=== PATIENT | male | born 1975 | race Caucasian/White ===

== ENCOUNTER 2018-11-06 16:20 | Emergency (ER) | payer OTHER ==
--- OUTSIDE RECORDS SUMMARY | 2018-11-06 16:32 | XMS REPORT | Continuity of Care Document ---
:1975 External Reference #:[id number] Author Name Kendall Mathur DO Address [address] [place] [address] Care Team Providers Name Role Phone Kendall Mathur DO Care Team Information Administration Clerk Unavailable Payers Type Date Identification Numbers Payment Provider Subscriber Effective: Policy Number: Lifetime Benefit Yordan Gonzalez 2014 [id number] Formerly [facility] Group Number: [id number] [id number] PayID: [facility] [place] [address] Advance Directives Description No Information Available Problems Date Description Provider Status Onset: 09/08/2014 Benign essential hypertension Kendall Mathur DO Active Onset: 03/17/2012 Gastroesophageal reflux disease Kendall Mathur DO Active Onset: 11/07/2014 Peptic reflux disease Kendall Mathur DO Active Onset: 04/19/2015 Laceration - injury Active Onset: 04/19/2015 Vasovagal syncope Active Family History Date Family Member(s) Problem(s) Comments Father Hypertension Father Hypercholesterolemia Father Depression Father Liver Disease Mother Neurofibromatosis Mother Pheochromocytoma Paternal Grandfather Diabetes, Adult Paternal Grandfather Hypertension Social History Type Date Description Comments Sex Unknown Education Some grad school 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 Hobbies Biking Hobbies [employer] Smokeless Tobacco Former Smokeless Tobacco User, Used Occasionally ETOH Use consumes 4-5 beers per week Recreational Drug Use Denies Drug Use Allergies, Adverse Reactions, Alerts Description No Known Drug Allergies Medications Medication Date Status Form Strength Qnty SIG Indications Ordering Provider Esomeprazole 09/20/ Active Capsules 40mg 90caps [address], every day DO Lisinopril 01/31/ Active Tablets 10mg 90tabs 1 by [email or web address] Dale Mathur, every day DO Augmentin 02/07/ Hx Tablets 875-125mg 14tabs 1 by [email or web address] Kevan, 2018 - mouth Kendall, 11/20/ twice a DO 2018 day x 7 days Lisinopril-Hydr 11/08/ Hx Tablets 20-25mg 90tabs 1 by I10 qian Mathurlorothiazide 2014 - mouth Kendall, 01/31/ every day DO 2016 Lisinopril 09/08/ Hx Tablets 10mg 90tabs 1 by Kevan, 2013 - mouth Kendall, 11/08/ every day DO 2014 Nexium 03/17/ Hx Capsules 40mg 90caps 1 by Kevan 2011 - DR gian Argueta, 09/20/ every day DO 2016 Esomeprazole / Hx Capsules 20mg Daily For Unknown Magnesium 0000 - DR Gastric 2014 Lisinopril/Hydr / Hx Tablets 20-12.5 Daily For Unknown ochlorothiazide 0000 - B/P 2014 Iron Supplement / Hx Tablets 1 by Unknown 0000 - mouth 10/22/ every day 2019 Immunizations CPT Code Status Date Vaccine Reaction Lot # [id number] Given 07/23/2018 Influenza Vac, Quadrivalent, Split, 0.5mL Dosage, Im Use [id number] Given 08/08/2017 Flu Vaccine NOS NYSIIS [id number] Given 04/22/2015 Tdap (Adacel) Ages 7 And Above Only [id number] Given 03/17/2012 Tdap (Adacel) Ages 7 And Above Only Vital Signs Date Vital Result Comment 10/23/2018 9:02am Weight 186.00 lb Heart Rate 66 /min BP Systolic 120 mmHg BP Diastolic 78 mmHg Respiratory Rate 18 /min Height 64.75 inches 5'4.75" (09/2016) BMI (Body Mass Index) 31.2 kg/m2 04/04/2018 8:03am Weight 179.00 lb Heart Rate 68 /min BP Systolic 132 mmHg BP Diastolic 78 mmHg Respiratory Rate 18 /min Height 64.75 inches 5'4.75" (09/2016) BMI (Body Mass Index) 30.0 kg/m2 11/13/2017 2:39pm Body Temperature 98.4 F Weight 178.00 lb Heart Rate 70 /min BP Systolic 138 mmHg BP Diastolic 82 mmHg Respiratory Rate 17 /min Height 64.75 inches 5'4.75" (09/2016) O2 % BldC Oximetry 98 % BMI (Body Mass Index) 29.8 kg/m2 09/27/2017 8:08am Weight 178.00 lb Heart Rate 78 /min BP Systolic 126 mmHg BP Diastolic 70 mmHg Respiratory Rate 17 /min Height 64.75 inches 5'4.75" (09/2016) BMI (Body Mass Index) 29.8 kg/m2 03/21/2017 8:02am Weight 174.00 lb Heart Rate 68 /min BP Systolic 126 mmHg BP Diastolic 80 mmHg Respiratory Rate 17 /min Height 64.75 inches 5'4.75" (09/2016) BMI (Body Mass Index) 29.2 kg/m2 09/20/2016 8:05am Weight 191.00 lb Heart Rate 88 /min BP Systolic 134 mmHg BP Diastolic 88 mmHg Respiratory Rate 18 /min Height 64.75 inches 5'4.75" (09/2016) BMI (Body Mass Index) 32.0 kg/m2 03/14/2016 8:05am Weight 196.00 lb Heart Rate 84 /min BP Systolic 136 mmHg BP Diastolic 90 mmHg BP Systolic Recheck 124 mmHg BP Diastolic Recheck 86 mmHg Respiratory Rate 18 /min Height 64.75 inches 5'4.75" BMI (Body Mass Index) 32.9 kg/m2 09/07/2015 8:02am Weight 196.00 lb Heart Rate 72 /min BP Systolic 134 mmHg BP Diastolic 92 mmHg Respiratory Rate 18 /min Height 64.75 inches 5'4.75" BMI (Body Mass Index) 32.9 kg/m2 03/02/2015 8:06am Weight 190.00 lb Heart Rate 72 /min BP Systolic 134 mmHg BP Diastolic 90 mmHg Respiratory Rate 18 /min Height 64.75 inches 5'4.75" BMI (Body Mass Index) 31.9 kg/m2 11/15/2014 2:51pm Body Temperature 97.5 F Weight 194.00 lb Heart Rate 88 /min BP Systolic 148 mmHg BP Diastolic 98 mmHg Respiratory Rate 18 /min Height 64.75 inches 5'4.75" BMI (Body Mass Index) 32.5 kg/m2 11/08/2014 8:05am Weight 197.00 lb Heart Rate 74 /min BP Systolic 150 mmHg BP Diastolic 98 mmHg BP Systolic Recheck 146 mmHg BP Diastolic Recheck 98 mmHg Respiratory Rate 18 /min 09/08/2014 2:51pm BP Systolic 134 mmHg BP Diastolic 92 mmHg 09/08/2014 2:51pm Weight 195.00 lb Heart Rate 84 /min BP Systolic 136 mmHg BP Diastolic 82 mmHg Respiratory Rate 18 /min Height 64.75 inches 5'4.75" 05/07/2014 8:32am Weight 192.00 lb Heart Rate 72 /min BP Systolic 130 mmHg BP Diastolic 90 mmHg Respiratory Rate 18 /min Height 64.75 inches 5'4.75" 03/24/2014 8:59am BP Systolic 138 mmHg BP Diastolic 106 mmHg 03/24/2014 8:59am Weight 192.00 lb Heart Rate 78 /min BP Systolic 148 mmHg BP Diastolic 102 mmHg Respiratory Rate 20 /min Results Test Date Facility Test Result H/L Range Note Laboratory test finding 10/02/2018 [facility] Magnesium 2.0 mg/dL 1.5-2.7 Iron, Total 95 g/dL 65-175 CBC with Auto Diff-fcmg 10/02/2018 [facility] WBC 6.2 K/uL 4.1-11.0 RBC 5.41 M/uL 4.60-6.10 Hemoglobin 16.4 gm/dL 13.5-18.0 Hematocrit 47.1 % 41.0-53.0 MCV 87.0 fL 80.0-97.0 MCH 30.2 pg 27.0-32.0 MCHC 34.8 g/dL 32.0-36.0 RDW 12.8 % 11.5-14.5 PLT Count 170 K/ul 140-400 MPV 9.1 FL 7.1-10.7 Neutrophil 62.3 % 35.0-75.0 Lymphocyte 25.9 % 16.0-52.0 Monocyte 9.0 % 2.0-10.0 Eosinophil 2.0 % 0.0-5.0 Basophil 0.8 % 0.0-4.0 Abs Neutrophils 3.9 K/uL 2.1-8.0 Abs Lymphocytes 1.6 K/uL 0.8-5.5 Abs Monocytes 0.6 K/uL 0.1-1.0 Abs Eosinophils 0.1 K/uL 0.0-0.5 Abs Basophils 0.1 K/uL 0.0-0.3 Basic (BMP) 10/02/2018 [facility] Sodium 143 mmol/L 135-146 1 Potassium 3.8 mmol/L 3.5-5.2 Chloride# 102 mmol/L 97-110 2 Carbon Dioxide 28 mmol/L 24-34 Glucose 94 mg/dL 70-105 BUN 16 mg/dL 6-26 Creatinine 1.0 mg/dL 0.5-1.4 Calcium 9.4 mg/dL 8.5-10.2 Non Joleen Egfr >60 >60 3 Joleen Egfr >60 >60 4 Anion Gap 13 mmol/L 5-15 5 Laboratory test finding 10/02/2018 [facility] TSH 2.77 uIU/mL 0.35-4.94 Lipid Treatment 10/02/2018 [facility] Cholesterol 187 mg/dL 50-199 Triglycerides 117 mg/dL 30-200 HDL 45 mg/dL 29-71 6 Chol/ HDL Ratio 4.2 ratio 4.0-6.7 VLDL 23 mg/dL 2-29 LDL (Calc) 119 mg/dL High 20-99 7 Alt 24 U/L 3-42 Ast 22 U/L 8-42 CBC With Auto Diff 03/28/2018 [facility] WBC 5.7 K/uL 4.1-11.0 RBC 5.15 M/uL 4.60-6.10 Hemoglobin 15.7 gm/dL 13.5-18.0 Hematocrit 44.9 % 41.0-53.0 MCV 87.3 fL 80.0-97.0 MCH 30.5 pg 27.0-32.0 MCHC 34.9 g/dL 32.0-36.0 RDW 13.1 % 11.5-14.5 PLT Count 182 K/ul 140-400 MPV 9.8 FL 7.1-10.7 Neutrophil 61.1 % 35.0-75.0 Lymphocyte 26.9 % 16.0-52.0 Monocyte 9.0 % 2.0-10.0 Eosinophil 2.0 % 0.0-5.0 Basophil 1.0 % 0.0-4.0 Abs Neutrophils 3.5 K/uL 2.1-8.0 Abs Lymphocytes 1.5 K/uL 0.8-5.5 Abs Monocytes 0.5 K/uL 0.1-1.0 Abs Eosinophils 0.1 K/uL 0.0-0.5 Abs Basophils 0.1 K/uL 0.0-0.3 Basic (BMP) 03/28/2018 [facility] Sodium 143 mmol/L 135-146 8 Potassium 4.0 mmol/L 3.5-5.2 Chloride# 109 mmol/L 97-110 9 Carbon Dioxide 26 mmol/L 24-34 Glucose 101 mg/dL 70-105 BUN 14 mg/dL 6-26 Creatinine 1.1 mg/dL 0.5-1.4 Calcium 9.1 mg/dL 8.5-10.2 Non Joleen Egfr >60 >60 10 Joleen Egfr >60 >60 11 Anion Gap 8 mmol/L 5-15 12 Laboratory test finding 03/28/2018 [facility] Iron, Total 103 g/dL 65- 175 CBC With Auto Diff 09/20/2017 [facility] WBC 6.9 K/uL 4.1-11.0 RBC 5.42 M/uL 4.60-6.10 Hemoglobin 16.2 gm/dL 13.5-18.0 Hematocrit 47.3 % 41.0-53.0 MCV 87.3 fL 80.0-97.0 MCH 29.9 pg 27.0-32.0 MCHC 34.2 g/dL 32.0-36.0 RDW 13.2 % 11.5-14.5 PLT Count 186 K/ul 140-400 MPV 9.1 FL 7.1-10.7 Neutrophil 69.0 % 35.0-75.0 Lymphocyte 20.8 % 16.0-52.0 Monocyte 8.0 % 2.0-10.0 Eosinophil 1.4 % 0.0-5.0 Basophil 0.8 % 0.0-4.0 Abs Neutrophils 4.7 K/uL 2.1-8.0 Abs Lymphocytes 1.4 K/uL 0.8-5.5 Abs Monocytes 0.6 K/uL 0.1-1.0 Abs Eosinophils 0.1 K/uL 0.0-0.5 Abs Basophils 0.1 K/uL 0.0-0.3 Basic (BMP) 09/20/2017 [facility] Sodium 140 mmol/L 135-146 13 Potassium 3.9 mmol/L 3.5-5.2 Chloride# 104 mmol/L 97-110 14 Carbon Dioxide 28 mmol/L 24-34 Glucose 92 mg/dL 70-105 Creatinine 1.1 mg/dL 0.5-1.4 Calcium 9.2 mg/dL 8.5-10.2 Non Joleen Egfr >60 >60 15 Joleen Egfr >60 >60 16 Anion Gap 8 mmol/L 7-16 17 BUN 14 mg/dL 6-26 Laboratory test finding 09/20/2017 [facility] TSH 2.91 uIU/mL 0.35-4.94 Lipid Treatment 09/20/2017 [facility] Cholesterol 158 mg/dL 50-199 Triglycerides 94 mg/dL 30-200 HDL 40 mg/dL 29-71 18 Chol/ HDL Ratio 4.0 ratio 4.0-6.7 VLDL 19 mg/dL 2-29 LDL (Calc) 100 mg/dL High 20-99 19 Alt 21 U/L 3-42 Ast 14 U/L 8-42 Laboratory test finding 09/20/2017 [facility] Magnesium 2.1 mg/dL 1.5-2.7 Iron, Total 54 g/dL Low 65-175 Ferritin 67.6 ng/ml 24.0-336.0 Vitamin B12 269 pg/mL 180-914 Laboratory test finding 12/26/2016 [facility] Ferritin 6.2 ng/ml Low 24.0- 336.0 Iron Panel 12/26/2016 [facility] Iron, Total 25 g/dL Low 65-175 Transferrin 290.0 mg/dL 203.0-362.0 Tibc (calc) 406 g/dL 261-478 % Iron Saturation 6.2 % Low 13.0-45.0 Laboratory test finding 12/26/2016 [facility] Vitamin B12 214 pg/mL 180- 914 CBC With Auto Diff 12/26/2016 [facility] WBC 6.1 K/uL 4.1-11.0 RBC 5.47 M/uL 4.60-6.10 Hemoglobin 12.1 gm/dL Low 13.5-18.0 Hematocrit 38.5 % Low 41.0-53.0 MCV 70.3 fL Low 80.0-97.0 MCH 22.2 pg Low 27.0-32.0 MCHC 31.6 g/dL Low 32.0-36.0 RDW 18.3 % High 11.5-14.5 PLT Count 224 K/ul 140-400 Neutrophil 71.1 % 35.0-75.0 Lymphocyte 18.2 % 16.0-52.0 Monocyte 8.9 % 2.0-10.0 Eosinophil 1.0 % 0.0-5.0 Basophil 0.8 % 0.0-4.0 Abs Neutrophils 4.4 K/uL 2.1-8.0 Abs Lymphocytes 1.1 K/uL 0.8-5.5 Abs Monocytes 0.5 K/uL 0.1-1.0 Abs Eosinophils 0.1 K/uL 0.0-0.5 Abs Basophils 0.0 K/uL 0.0-0.3 Basic (BMP) 12/26/2016 [facility] Sodium 138 mmol/L 135-146 20 Potassium 4.7 mmol/L 3.5-5.2 Chloride# 103 mmol/L 97-110 21 Carbon Dioxide 27 mmol/L 24-34 Glucose 85 mg/dL 70-105 BUN 17 mg/dL 6-26 Creatinine 1.1 mg/dL 0.5-1.4 Calcium 9.3 mg/dL 8.5-10.2 Non Joleen Egfr >60 >60 22 Joleen Egfr >60 >60 23 Anion Gap 13 mmol/L 7-16 24 CBC With Auto Diff 09/13/2016 [facility] WBC 6.4 K/uL 4.1-11.0 RBC 5.57 M/uL 4.60-6.10 Hemoglobin 11.5 gm/dL Low 13.5-18.0 Hematocrit 37.0 % Low 41.0-53.0 MCV 66.3 fL Low 80.0-97.0 MCH 20.7 pg Low 27.0-32.0 MCHC 31.2 g/dL Low 32.0-36.0 RDW 18.3 % High 11.5-14.5 PLT Count 274 K/ul 140-400 Neutrophil 63.3 % 35.0-75.0 Lymphocyte 23.5 % 16.0-52.0 Monocyte 9.7 % 2.0-10.0 Eosinophil 2.3 % 0.0-5.0 Basophil 1.2 % 0.0-4.0 Abs Neutrophils 4.0 K/uL 2.1-8.0 Abs Lymphocytes 1.5 K/uL 0.8-5.5 Abs Monocytes 0.6 K/uL 0.1-1.0 Abs Eosinophils 0.1 K/uL 0.0-0.5 Abs Basophils 0.1 K/uL 0.0-0.3 Basic (BMP) 09/13/2016 [facility] Sodium 139 mmol/L 134-142 Potassium 3.9 mmol/L 3.5-5.2 Chloride 106 mmol/L 97-109 Carbon Dioxide 28 mmol/L 24-34 Glucose 99 mg/dL 70-105 BUN 17 mg/dL 6-26 Creatinine 1.1 mg/dL 0.5-1.4 Calcium 8.7 mg/dL 8.5-10.2 Anion Gap 9 mmol/L 6-14 Non Joleen Egfr >60 >60 25 Joleen Egfr >60 >60 26 Laboratory test finding 09/13/2016 [facility] TSH 2.33 uIU/mL 0.35-4.94 Lipid Treatment 09/13/2016 [facility] Cholesterol 154 mg/dL 50-199 Triglycerides 103 mg/dL 30-200 HDL 29 mg/dL 29-71 27 Chol/ HDL Ratio 5.3 ratio 4.0-6.7 VLDL 21 mg/dL 2-29 LDL (Calc) 104 mg/dL High 20-99 28 Alt 21 U/L 3-42 Ast 16 U/L 8-42 CBC With Auto Diff 08/31/2015 [facility] WBC 6.5 K/uL 4.1-11.0 29 RBC 5.49 M/uL 4.60-6.10 Hemoglobin 13.5 gm/dL 13.5-18.0 Hematocrit 41.8 % 41.0-53.0 MCV 76.2 fL Low 80.0-97.0 MCH 24.5 pg Low 27.0-32.0 MCHC 32.2 g/dL 32.0-36.0 RDW 16.3 % High 11.5-14.5 PLT Count 200 K/ul 140-400 Neutrophil 67.5 % 35.0-75.0 Lymphocyte 17.2 % 16.0-52.0 Monocyte 12.6 % High 2.0-10.0 Eosinophil 1.5 % 0.0-5.0 Basophil 1.2 % 0.0-4.0 Abs Neutrophils 4.4 K/uL 2.1-8.0 Abs Lymphocytes 1.1 K/uL 0.8-5.5 Abmon 0.8 K/uL 0.1-1.0 Abs Eosinophils 0.1 K/uL 0.0-0.5 Abs Basophils 0.1 K/uL 0.0-0.3 Basic (BMP) 08/31/2015 [facility] Sodium 138 mmol/L 134-142 Potassium 4.2 mmol/L 3.5-5.2 Chloride 104 mmol/L 97-109 Carbon Dioxide 26 mmol/L 24-34 Glucose 103 mg/dL 70-105 BUN 14 mg/dL 6-26 Creatinine 1.1 mg/dL 0.5-1.4 Calcium 8.6 mg/dL 8.5-10.2 Anion Gap 12 mmol/L 6-14 Non Joleen Egfr >60 >60 30 Joleen Egfr >60 >60 31 Lipid Treatment 08/31/2015 [facility] Cholesterol 156 mg/dL 50-199 Triglycerides 79 mg/dL 30-200 HDL 36 mg/dL 29-71 32 Chol/ HDL Ratio 4.3 ratio 4.0-6.7 VLDL 16 mg/dL 2-29 LDL (Calc) 104 mg/dL High 20-99 33 Alt 27 U/L 3-42 Ast 19 U/L 8-42 Laboratory test 08/31/2015 [facility] TSH 2.56 uIU/mL 0.35-4.94 finding Laboratory test 04/19/2015 N2N/CCD Import Bedside 93 70-110 finding Glucose Basic Metabolic 11/01/2014 [facility] Glucose 95 mg/dL 74-106 Panel (315)- - BUN 13 mg/dL 7-18 Creatinine 1.2 mg/dL 0.6-1.3 Glom Filtration Rate, Estimate >60 mL/min >60 If >60 mL/min >60 34 BUN/Creat 10.8 ratio Sodium 140 mmol/L 136-145 Potassium 3.8 mmol/L 3.5-5.1 Chloride 106 mmol/L 98-107 Carbon Dioxide 27 mmol/L 21-32 Anion Gap 11 mEq/L 8-16 Calcium 8.6 mg/dL 8.5-10.1 Laboratory test finding 03/24/2014 N2N/CCD Import % Baso. 1.9 % 0.0-2.0 % Eos. 1.6 % 0.0-4.0 % Lymph 24 % 20-44 % [place] 8.8 % 2.0-10.0 % Amanda 63 % 50-70 A/G Ratio 1.3 ratio Low 1.6-2.2 Absolute Baso. 0.1 K/ul 0.0-0.3 Absolute Eos. 0.1 K/ul 0.0-0.5 Absolute Lymph. 1.5 K/ul 0.8-4.8 Absolute [place]. 0.5 K/ul 0.1-1.0 Absolute Amanda. 3.92 K/ul 2.05-7.63 Albumin 4.2 g/dL 3.5-5.0 Alk. Phos. 66.0 U/L 30.0-126.0 Alt 25.0 U/L 21.0-72.0 Anion Gap 9.0 mmol/L Low 10.0-20.0 Ast 23.0 U/L 17.0-59.0 BUN 14.0 mg/dL 9.0-21.0 BUN/Creat Ratio 12.7 ratio 12.0-20.0 Calcium 9.2 mg/dL 8.7-10.5 Chloride 106.0 mmol/L 98.0-107.0 Co2 25.0 mmol/L 22.0-30.0 Creatinine-Serum 1.1 mg/dL 0.8-1.5 Globulin 3.2 g/dL 2.7-4.3 Glucose 96.0 mg/dL 75.0-110.0 HCT 45.3 % 37.0-51.0 HGB 14.1 Gm/dl 12.0-16.0 MCH 23.4 pg Low 26.0-32.0 MCHC 31.1 g/dL 31.0-36.0 MCV 75.4 Fl Low 80.0-97.0 MPV 8.1 fL 6.0-10.0 Magnesium 2.1 1.7-2.3 PLT 225 K/ul 140-440 Potasium 4.0 mmol/L 3.6-5.0 RBC 6.0 M/ul 4.2-6.3 RDW 15.8 % High 11.5-14.5 Sodium 140.0 mmil/L 137.0-145.0 TSH 1.86 uIU/ml 0.50-6.00 Total Bilirubin 0.7 mg/dL 0.2-1.3 Total Protein 7.4 g/dL 6.3-8.2 WBC 6.2 K/ul 4.1-10.9 eGFR 82.1 mi/minper1.73 35 1 Updated reference range on new analyzer 2 Updated reference range on new analyzer 3 Concerning GFR Guidelines: Normal function or mild renal disease, if clinically at risk: >/=60 mL/min Moderately decreased: 30-59 Severely decreased: 15-29 Renal failure: <15 Glomerular Filtration Rate (GFR) is estimated based on the MDRD equation, which assumes a steady state for creatinine as recommended by the National Kidney Disease Education Program in conjunction with the National Institutes of Health and the National Kidney Foundation. Clinical conditions in which it may be necessary to measure GFR by using clearance methods include extremes of age and body size, severe malnutrition or obesity, diseases of skeletal muscle, paraplegia or quadriplegia, vegetarian diet, rapidly changing kidney function, and calculation of the dose of potentially toxic drugs that are excreted by the kidneys. 4 Concerning GFR Guidelines for Americans: Normal function or mild renal disease, if clinically at risk: >/=60 mL/min Moderately decreased: 30-59 Severely decreased: 15-29 Renal failure: <15 5 Updated Reference Range 6 Per NCEP ATP III Guidelines: Results lower than 40 mg/dL are suggestive of increased risk for coronary artery disease. Results > or=to 60 mg/dL are considered a negative risk factor. 7 Per NCEP ATP III Guidelines: Normal Population <130 Patients with medical conditions: CHD/DM Optimal: <100 Borderline high: 130-159 High: 160-189 Very high: >189 8 Updated reference range on new analyzer 9 Updated reference range on new analyzer 10 Concerning GFR Guidelines: Normal function or mild renal disease, if clinically at risk: >/=60 mL/min Moderately decreased: 30-59 Severely decreased: 15-29 Renal failure: <15 Glomerular Filtration Rate (GFR) is estimated based on the MDRD equation, which assumes a steady state for creatinine as recommended by the National Kidney Disease Education Program in conjunction with the National Institutes of Health and the National Kidney Foundation. Clinical conditions in which it may be necessary to measure GFR by using clearance methods include extremes of age and body size, severe malnutrition or obesity, diseases of skeletal muscle, paraplegia or quadriplegia, vegetarian diet, rapidly changing kidney function, and calculation of the dose of potentially toxic drugs that are excreted by the kidneys. 11 Concerning GFR Guidelines for Americans: Normal function or mild renal disease, if clinically at risk: >/=60 mL/min Moderately decreased: 30-59 Severely decreased: 15-29 Renal failure: <15 12 Updated Reference Range 13 Updated reference range on new analyzer 14 Updated reference range on new analyzer 15 Concerning GFR Guidelines: Normal function or mild renal disease, if clinically at risk: >/=60 mL/min Moderately decreased: 30-59 Severely decreased: 15-29 Renal failure: <15 Glomerular Filtration Rate (GFR) is estimated based on the MDRD equation, which assumes a steady state for creatinine as recommended by the National Kidney Disease Education Program in conjunction with the National Institutes of Health and the National Kidney Foundation. Clinical conditions in which it may be necessary to measure GFR by using clearance methods include extremes of age and body size, severe malnutrition or obesity, diseases of skeletal muscle, paraplegia or quadriplegia, vegetarian diet, rapidly changing kidney function, and calculation of the dose of potentially toxic drugs that are excreted by the kidneys. 16 Concerning GFR Guidelines for Americans: Normal function or mild renal disease, if clinically at risk: >/=60 mL/min Moderately decreased: 30-59 Severely decreased: 15-29 Renal failure: <15 17 Updated reference range on new analyzer 18 Per NCEP ATP III Guidelines: Results lower than 40 mg/dL are suggestive of increased risk for coronary artery disease. Results > or=to 60 mg/dL are considered a negative risk factor. 19 Per NCEP ATP III Guidelines: Normal Population <130 Patients with medical conditions: CHD/DM Optimal: <100 Borderline high: 130-159 High: 160-189 Very high: >189 20 Updated reference range on new analyzer 21 Updated reference range on new analyzer 22 Concerning GFR Guidelines: Normal function or mild renal disease, if clinically at risk: >/=60 mL/min Moderately decreased: 30-59 Severely decreased: 15-29 Renal failure: <15 Glomerular Filtration Rate (GFR) is estimated based on the MDRD equation, which assumes a steady state for creatinine as recommended by the National Kidney Disease Education Program in conjunction with the National Institutes of Health and the National Kidney Foundation. Clinical conditions in which it may be necessary to measure GFR by using clearance methods include extremes of age and body size, severe malnutrition or obesity, diseases of skeletal muscle, paraplegia or quadriplegia, vegetarian diet, rapidly changing kidney function, and calculation of the dose of potentially toxic drugs that are excreted by the kidneys. 23 Concerning GFR Guidelines for Americans: Normal function or mild renal disease, if clinically at risk: >/=60 mL/min Moderately decreased: 30-59 Severely decreased: 15-29 Renal failure: <15 24 Updated reference range on new analyzer 25 Concerning GFR Guidelines: Normal function or mild renal disease, if clinically at risk: >/=60 mL/min Moderately decreased: 30-59 Severely decreased: 15-29 Renal failure: <15 Glomerular Filtration Rate (GFR) is estimated based on the MDRD equation, which assumes a steady state for creatinine as recommended by the National Kidney Disease Education Program in conjunction with the National Institutes of Health and the National Kidney Foundation. Clinical conditions in which it may be necessary to measure GFR by using clearance methods include extremes of age and body size, severe malnutrition or obesity, diseases of skeletal muscle, paraplegia or quadriplegia, vegetarian diet, rapidly changing kidney function, and calculation of the dose of potentially toxic drugs that are excreted by the kidneys. 26 Concerning GFR Guidelines for Americans: Normal function or mild renal disease, if clinically at risk: >/=60 mL/min Moderately decreased: 30-59 Severely decreased: 15-29 Renal failure: <15 27 Per NCEP ATP III Guidelines: Results lower than 40 mg/dL are suggestive of increased risk for coronary artery disease. Results > or=to 60 mg/dL are considered a negative risk factor. 28 Per NCEP ATP III Guidelines: Normal Population <130 Patients with medical conditions: CHD/DM Optimal: <100 Borderline high: 130-159 High: 160-189 Very high: >189 29 Fastin hours 30 Concerning GFR Guidelines: Normal function or mild renal disease, if clinically at risk: >/=60 mL/min Moderately decreased: 30-59 Severely decreased: 15-29 Renal failure: <15 Glomerular Filtration Rate (GFR) is estimated based on the MDRD equation, which assumes a steady state for creatinine as recommended by the National Kidney Disease Education Program in conjunction with the National Institutes of Health and the National Kidney Foundation. Clinical conditions in which it may be necessary to measure GFR by using clearance methods include extremes of age and body size, severe malnutrition or obesity, diseases of skeletal muscle, paraplegia or quadriplegia, vegetarian diet, rapidly changing kidney function, and calculation of the dose of potentially toxic drugs that are excreted by the kidneys. 31 Concerning GFR Guidelines for Americans: Normal function or mild renal disease, if clinically at risk: >/=60 mL/min Moderately decreased: 30-59 Severely decreased: 15-29 Renal failure: <15 32 Per NCEP ATP III Guidelines: Results lower than 40 mg/dL are suggestive of increased risk for coronary artery disease. Results > or=to 60 mg/dL are considered a negative risk factor. 33 Per NCEP ATP III Guidelines: Normal Population <130 Patients with medical conditions: CHD/DM Optimal: <100 Borderline high: 130-159 High: 160-189 Very high: >189 34 Note: Persistent reduction for 3 months or more in an eGFR <60 mL/min/1.73 m2 defines CKD. Patients with eGFR values >/=60 mL/min/1.73 m2 may also have CKD if evidence of persistent proteinuria is present. The original MDRD equation for estimated GFR is not valid for patients less than 18 years of age. Additional information may be found at www.kdoqi.org. 35 For -[place] patients multiply result by 1.180 Procedures Date Code Description Status 11/13/2017 03176 Measure Blood Oxygen Level Single Determination Completed 03/24/2014 51225 Electrocardiogram Complete Completed Encounters Type Date Location Provider Dx Diagnosis Office Visit 04/04/2018 [facility] Kendall Mathur DO I10 Essential (primary) 8:00a hypertension K21.9 Gastro-esophageal reflux disease without esophagitis D50.9 Iron deficiency anemia, unspecified Z68.30 Body mass index (BMI) 30.0-30.9, adult Office Visit 11/13/2017 2:45p [facility] Kendall Mathur DO J01.90 Acute sinusitis, unspecified Office Visit 09/27/2017 8:00a [facility] Kendall Mathur DO I10 Essential ( primary) hypertension D50.9 Iron deficiency anemia, unspecified K21.9 Gastro-esophageal reflux disease without esophagitis Z68.29 Body mass index (BMI) 29.0-29.9, adult Office Visit 03/21/2017 8:00a [facility] Kendall Mathur DO I10 Essential ( primary) hypertension K21.9 Gastro-esophageal reflux disease without esophagitis D50.9 Iron deficiency anemia, unspecified Z68.29 Body mass index (BMI) 29.0-29.9, adult Office Visit 09/20/2016 8:00a [facility] Kendall Mathur DO I10 Essential ( primary) hypertension K21.9 Gastro-esophageal reflux disease without esophagitis E66.09 Other obesity due to excess calories G47.9 Sleep disorder, unspecified D64.9 Anemia, unspecified Office Visit 03/14/2016 8:00a [facility] Kendall Mathur DO I10 Essential ( primary) hypertension K21.9 Gastro-esophageal reflux disease without esophagitis E66.09 Other obesity due to excess calories G47.9 Sleep disorder, unspecified Office Visit 09/07/2015 8:00a [facility] Kendall Mathur DO I10 Essential ( primary) hypertension K21.9 Gastro-esophageal reflux disease without esophagitis E66.09 Other obesity due to excess calories G47.9 Sleep disorder, unspecified Office Visit 03/02/2015 8:00a [facility] Kendall Mathur DO 401.1 Hypertension Benign 530.81 Esophageal Reflux 278.00 Obesity Unspec Office Visit 11/15/2014 2:45p [facility] Sophie Hawkins, 558.9 Gastroenteritis & Colitis PA Noninfectious Other Office Visit 11/08/2014 8:00a [facility] Kendall Mathur DO 401.1 Hypertension Benign 530.81 Esophageal Reflux Plan of Treatment Future Appointment(s):10/22/2019 7:30 am - Schedule, Laboratory at [facility]2019 8:00 am - Kendall Mathur DO at [facility]10/23/2018 - Kendall Mathur DOI10 Essential (primary) hypertensionNew Labs:CBC with Auto Diff-fcmg, Scheduled: Basic (BMP), Scheduled: 10/22/19TSH, Scheduled: 10/22/19Lipid Treatment, Scheduled: 10/22/19Follow up:Follow up in 1 year for an annual physical- 15 mins ok. Get labs done 1 week prior.K21.9 Gastro-esophageal reflux disease without esophagitisNew Labs:Magnesium, Scheduled: 10/22/19D50.9 Iron deficiency anemia, unspecifiedNew Labs:Iron, Total, Scheduled: 10/22/19Z68.31 Body mass index (BMI) 31.0-31.9, adult
[2018-11-06 16:38] VITALS: BP 150/70
--- NOTE | 2018-11-06 17:09 | ED ---
Skin Complaint - HPI Summary HPI Summary: 43 yr old male with left heel abrasion. He hiked 12 miles over this past weekend at [facility], and had a blister. The blister popped and then outer layer skin came off. heel is sore and friable. No fever, chills, or red streak up leg. Denies smoking. He denies DM. - History of Current Complaint Chief Complaint: UCSkin Time Seen by Provider: 11/06/18 16:49 Stated Complaint: LEFT HEEL COMPLAINT Pain Intensity: 3 - Allergy/Home Medications Allergies/Adverse Reactions: Allergies Allergy/AdvReac Type Severity Reaction Status Date / Time No Known Allergies Allergy Verified 12/15/12 16:04 Home Medications: Home Medications Lisinopril 10 mg PO DAILY 11/06/18 [History Confirmed 11/06/18] PMH/Surg Hx/FS Hx/Imm Hx - Surgical History Surgery Procedure, Year, and Place: FIBROIDS REMOVED FROM RIGHT ARM Infectious Disease History: No Infectious Disease History: Denies: Traveled Outside the [place] in Last 30 Days - Family History Known Family History: Positive: None - Social History Occupation: Employed Full-time Alcohol Use: Weekly Substance Use Type: Reports: None Smoking Status (MU): Smoker, Current Status Unknown Type: Cigars Review of Systems Constitutional: Negative Positive: Other - left heel abrasion All Other Systems Reviewed And Are Negative: Yes Physical Exam Triage Information Reviewed: Yes Vital Signs On Initial Exam: Initial Vitals Temp Pulse Resp BP Pulse Ox 97.7 F 74 16 150/70 98 11/06/18 16:34 11/06/18 16:34 11/06/18 16:34 11/06/18 16:34 11/06/18 16:34 Vital Signs Reviewed: Yes Appearance: Positive: Well-Appearing, No Pain Distress Skin: Positive: Warm Head/Face: Positive: Normal Head/Face Inspection Eyes: Positive: EOMI ENT: Positive: Normal ENT inspection Neck: Positive: Nontender Respiratory/Lung Sounds: Positive: Clear to Auscultation, Breath Sounds Present Cardiovascular: Positive: RRR, Pulses are Symmetrical in both Upper and Lower Extremities - good DP and PT pulse left foot. Negative: Murmur Abdomen Description: Negative: Distended Musculoskeletal: Positive: Strength/ROM Intact, Other - abrasion left heel that is partial thickness about 1.5 inch in diameter. No pus, no erythema of skin around the abrasion. achilles tendon intact. Neurological: Positive: Sensory/Motor Intact, Alert, Oriented to Person Place, Time, CN Intact II-III Psychiatric: Positive: Normal Diagnostics - Vital Signs Vital Signs Temp Pulse Resp BP Pulse Ox 11/06/18 16:34 97.7 F 74 16 150/70 98 - Laboratory Lab Statement: Any lab studies that have been ordered have been reviewed, and results considered in the medical decision making process. Course/Dx - Course Course Of Treatment: 43 yr old with heel abrasion. Local wound care and follow up with PMD - Diagnoses Provider Diagnoses: Abrasion of left heel, Hypertension Discharge - Sign-Out/Discharge Documenting (check all that apply): Patient Departure All imaging exams completed and their final reports reviewed: No Studies - Discharge Plan Condition: Good Disposition: HOME Patient Education Materials: Acute Wound Care (ED), Hypertension (ED) Referrals: Kendall Mathur DO [Primary Care Provider] - 1 Day Additional Instructions: clean wound with plain soap and water twice a day; after the cleaning apply antibiotic ointment and dressing twice a day. Follow up with your primary doctor in the next week. - Billing Disposition and Condition Condition: GOOD Disposition: Home
== END 2018-11-06 17:16 | disposition home or self-care (01) ==
LOC: UCCORT 16:20
DX: S90.812A Abrasion, left foot, initial encounter (principal); I10 Essential (primary) hypertension; F17.210 Nicotine dependence, cigarettes, uncomplicated; Z79.899 Other long term (current) drug therapy; X58.XXXA Exposure to other specified factors, initial encounter; Y92.9 Unspecified place or not applicable
CPT/HCPCS: 99202; G0463